=== PATIENT | female | born 1955 | race Caucasian/White ===

== ENCOUNTER 2024-06-13 07:34 | Day surgery (SDC) | payer MEDICARE, BC ==
[2024-06-11 14:16] VITALS: BMI 33.4
[2024-06-13] MEDS: IV FLUID CONTINUATION 1,000 ML IV ONE (07:58)
[2024-06-13] MEDS: LACTATED RINGERS 1,000 ML IV SCH (08:03)
[2024-06-13 08:04] LABS: Glucose,Whole Blood 122 mg/dL (70-110)
[2024-06-13] MEDS: ONDANSETRON 4 MG/2 ML VIAL IVP STA (08:04)
[2024-06-13 08:06] VITALS: TEMP 98
[2024-06-13] MEDS ORDERED: PROPOFOL 10 MG/ML 20 ML VIAL IV ONE (08:14)
--- NOTE | 2024-06-13 08:36 | P.PCN ---
Date of Procedure: 06/13/24 Procedure(s) Performed: Brief history: Patient is a pleasant 68-year-old white female scheduled for an elective upper endoscopy as well as colonoscopy as a part of evaluation of GERD/history of colon polyps. Last colonoscopy was 3 years ago and was noted to have multiple small colon polyps. Procedure performed: Esophagogastroduodenoscopy with biopsy Colonoscopy Preoperative diagnosis: History of GERD History of colon polyps Anesthesia: MAC Procedure: After informed consent was obtained from the patient was brought into the endoscopy unit and IV sedation was administered by anesthesia under continuous monitoring. Initially upper endoscopy was done. The Olympus GF 160 video endoscope was inserted inserted into the mouth and esophagus intubated without any difficulty and was gradually advanced into the stomach and duodenum and carefully examined. The bulb and second part of the duodenum appeared normal. The scope was then withdrawn into the stomach adequately insufflated with air and upon careful examination the antrum diffuse gastritis and biopsies were done from this area. Mucosa of the body, cardia and fundus appeared normal. Gastric polyps noted in the proximal body of the stomach which was biopsied. The scope was then withdrawn into the esophagus. The GE junction was located at 40 cm to the incisors. It appeared regular with no erythema erosions or ulcerations. Rest of the esophagus appeared normal. Patient tolerated the procedure well. At this time the patient continued to remain sedation. Initial digital rectal examination was normal. Olympus CF 160 video colonoscope was then inserted into the rectum and gradually advanced to the cecum without any difficulty. Careful examination was performed as the scope was gradually being withdrawn. The prep was excellent. The cecum, ascending colon, transverse colon, descending colon, sigmoid colon and rectum appeared normal. Scattered sigmoid diverticulosis. Retroflexion was performed in the rectum and no lesions were noted. Patient tolerated the procedure well. Impression: 1. Upper endoscopy revealed mild diffuse antral gastritis and small gastric polyps in the gastric body 2. Colonoscopy revealed sigmoid diverticulosis but no evidence of colorectal neoplasia Recommendations: Findings of this examination were discussed with the patient as well as. She was advised to continue with current medications and follow antireflux measures. Recommended repeat colonoscopy in 5 years because of the prior history of colon polyps.
[2024-06-13 08:59] VITALS: BP 112/68; PULSE 71; RESP 18
== END 2024-06-13 09:12 | disposition home or self-care (01) ==
LOC: ORWHC2ENDO 07:34
PROVIDERS: ATTEND Internal Medicine Gastroenterology
DX: K29.50 Unspecified chronic gastritis without bleeding (principal); D12.6 Benign neoplasm of colon, unspecified; K21.9 Gastro-esophageal reflux disease without esophagitis; K31.7 Polyp of stomach and duodenum; K57.30 Diverticulosis of large intestine without perforation or abscess without bleeding; I10 Essential (primary) hypertension; E78.5 Hyperlipidemia, unspecified; J45.909 Unspecified asthma, uncomplicated; E11.9 Type 2 diabetes mellitus without complications; E07.9 Disorder of thyroid, unspecified; F32.A Depression, unspecified; F41.9 Anxiety disorder, unspecified; N28.9 Disorder of kidney and ureter, unspecified; Z90.89 Acquired absence of other organs; Z89.122 Acquired absence of left wrist; Z89.522 Acquired absence of left knee; Z88.2 Allergy status to sulfonamides; Z88.8 Allergy status to other drugs, medicaments and biological substances; Z88.1 Allergy status to other antibiotic agents; Z79.890 Hormone replacement therapy; Z79.899 Other long term (current) drug therapy
CPT/HCPCS: 45378; 43239; J2405; J2704; 88305

== ENCOUNTER → 2024-12-12 | Outpatient (CLI) | payer MEDICARE, BC ==
--- NOTE | 2024-12-12 13:47 | CT ---
EXAMINATION TYPE: CT brain cspine wo con CT DLP: 1459 mGycm, Automated exposure control for dose reduction was used. DATE OF EXAM: 12/12/2024 1:28 PM COMPARISON: MR cervical spine 12/15/2009, MRA brain 08/12/2010. CLINICAL INDICATION:Female, 69 years old with history of R20.0 ANESTHESIA OF SKIN M54.2 CERVICALGIA; headache, neck pain, facial numbness, pain TECHNIQUE: Brain: Multiple axial CT images of the brain were obtained without IV contrast. Cspine: Axial CT images from the skull base to the inferior aspect of T2 we obtained without intraven ous contrast. Coronal and sagittal reformatted images were also reviewed. FINDINGS: Brain: Extra-axial spaces: No abnormal extra-axial fluid collections. Ventricular system: Within normal limits Cerebral parenchyma: No acute intraparenchymal hemorrhage or mass effect. The frankel-white junction is well differentiated. Scattered hypoattenuating areas are seen within the periventricular white matte r. Cerebellum: Unremarkable. Mass effect: No evidence of midline shift. Intracranial vasculature: Atherosclerotic calcifications of the intracranial vessels. Soft tissues: Normal. Calvarium/osseous structures: No depressed skull fracture. Paranasal sinuses and mastoid air cells: The mastoid air cells are clear. The paranasal sinuses are c lear. Postsurgical changes of the both ethmoid sinuses and maxillary sinuses. Visualized orbits: Orbital contents are intact. Cervical spine: Fracture: None. Osseous structures: Multilevel disc space narrowing with endplate sclerosis and anterior osteophytosi s. Multilevel facet arthropathy with fusion of the left C2-C3 facet joint. Vertebral alignment: Degenerative grade 1 anterolisthesis of C3 on C4. Spinal canal/Neural Foramina: No evidence of significant spinal canal narrowing. Facet joint uncovert ebral joint arthropathy scattered throughout the cervical spine with varying degrees of mild to moder ate neural foraminal stenosis. Moderate bilateral neural foramina stenosis at C3-C4, on the left at C 4-C5, bilaterally at C5-C6 and on the right at C6-C7. Neck soft tissues: Prevertebral soft tissues are within normal limits. Other: The airway is patent. The lung apices are clear. Bilateral carotid bifurcation calcifications. Thyroid gland is atrophic or surgically absent. IMPRESSION: 1. No acute intracranial process. 2. Nonspecific mild white matter changes, likely secondary to chronic small vessel ischemic disease. 3. No evidence of cervical spine fracture. 4. Mild to moderate multilevel degenerative disc disease and facet arthropathy. No significant spinal canal stenosis identified. [facility], , 12/12/2024 1:45 PM
== END | disposition home or self-care (01) ==
LOC: RADCTMAIN 12:46
PROVIDERS: ATTEND Family Medicine
DX: M50.30 Other cervical disc degeneration, unspecified cervical region (principal); M47.812 Spondylosis without myelopathy or radiculopathy, cervical region; R90.82 White matter disease, unspecified
CPT/HCPCS: 70450; 72125